=== PATIENT | male | born 1960 | race Caucasian/White ===

== ENCOUNTER 2019-01-09 09:14 | Day surgery (SDC) | payer OTHER ==
[~2019-01-09 09:14] MED LIST: CEFAZOLIN 2 GM/50 ML (PMX) 50 ML IVPB; SOD CHLORIDE 0.9% 1,000 ML IV
[2019-01-09 10:17] LABS: ADD MAN DIFF? NO
[2019-01-09 10:24] LABS: BASOPHILS % 0.6 % (0.0-2.0); EOSINOPHILS # 0.2 10^3/ul (0.0-0.5); EOSINOPHILS % 2.7 % (0.0-7.0); HEMATOCRIT 44.4 % (42.0-52.0); HEMOGLOBIN 15.4 g/dl (14.0-18.0); LYMPHOCYTES # 1.6 10^3/ul (0.8-2.9); LYMPHOCYTES % 25.3 % (15.0-51.0); MEAN CORPUSCULAR HEMOGLOBIN 29.1 pg (29.0-33.0); MEAN CORPUSCULAR HGB CONC 34.7 g/dl (32.0-37.0); MEAN CORPUSCULAR VOLUME 83.9 fl (82.0-101.0); MONOCYTE # 0.7 10^3/ul (0.3-0.9); MONOCYTES % 10.3 % (0.0-11.0); NEUTROPHIL # 3.8 10^3/ul (1.6-7.5); NEUTROPHILS % 60.3 % (39.0-77.0); PLATELET COUNT 274 10^3/UL (140-415); RED BLOOD COUNT 5.29 10^6/ul (4.70-6.10); RED CELL DISTRIBUTION WIDTH 12.1 % (11.5-14.5)
[2019-01-09 10:24] LABS: WHITE BLOOD COUNT 6.3 10^3/ul (4.8-10.8)
[2019-01-09 10:36] LABS: ALANINE AMINOTRANSFERASE 52 IU/L (13-69); ALBUMIN 4.7 g/dl (3.3-4.9); ALBUMIN/GLOBULIN RATIO 1.56; ALKALINE PHOSPHATASE 92 IU/L (42-121); ANION GAP 14 (5-13); ASPARTATE AMINO TRANSFERASE 33 IU/L (15-46); BILIRUBIN,INDIRECT 1.2 mg/dl (0-1.1); BILIRUBIN,TOTAL 1.2 mg/dl (0.2-1.3); BLOOD UREA NITROGEN 15 mg/dl (7-20); CALCIUM 9.8 mg/dl (8.4-10.2); CARBON DIOXIDE 24 mmol/L (21-31); CHLORIDE 104 mmol/L (97-110); CREATININE 0.76 mg/dl (0.61-1.24); Estimated GFR > 60 mL/min (>60); GLUCOSE 108 mg/dl (70-220); POTASSIUM 4.3 mmol/L (3.5-5.1); SODIUM 142 mmol/L (135-144); TOTAL PROTEIN 7.7 g/dl (6.1-8.1)
[2019-01-09 10:39] LABS: INR 0.95; PROTIME 12.8 Sec (11.9-14.9)
[2019-01-09 11:17] LABS: PARTIAL THROMBOPLASTIN TIME 37.7 Sec (23.0-35.0)
[2019-01-09] MEDS ORDERED: PROPOFOL 20 ML (12:54)
[2019-01-09] MEDS ORDERED: LIDOCAINE 2% (SDV) 5 ML INJ (12:55)
[2019-01-09] MEDS ORDERED: MIDAZOLAM 1 MG/ML 2 ML INJ (12:55)
[2019-01-09] MEDS ORDERED: FENTAnyl 50 MCG/ML VIAL (12:56)
[2019-01-09] MEDS ORDERED: DIPHENHYDRAMINE 50 MG INJ IV (13:00)
[2019-01-09] MEDS ORDERED: FENTAnyl 50 MCG/ML VIAL IV ×3 (13:00)
[2019-01-09] MEDS ORDERED: hydrALAzine 20 MG INJ IV (13:00)
[2019-01-09] MEDS ORDERED: MEPERIDINE 25 MG INJ IV (13:00)
[2019-01-09] MEDS ORDERED: PROCHLORPERAZINE 10 MG INJ IV (13:00)
[2019-01-09] MEDS ORDERED: HYDROmorphONE 1 MG/5 ML IV SYRINGE IV ×3 (13:00)
[2019-01-09] MEDS ORDERED: LABETALOL HCL 20MG INJ IV (13:00)
[2019-01-09] MEDS ORDERED: EPHEDrine SULFATE 50 MG/5 ML SYG IV (13:00)
[2019-01-09] MEDS ORDERED: ONDANSETRON 4 MG INJ IV (13:00)
[2019-01-09] MEDS ORDERED: CEFAZOLIN 1 GM INJ (13:07)
[2019-01-09] MEDS ORDERED: DEXAMETHASONE 4 MG/ML 5 ML INJ (13:07)
[2019-01-09] MEDS ORDERED: FAMOTIDINE 20 MG INJ (13:07)
[2019-01-09] MEDS ORDERED: ONDANSETRON 4 MG INJ (13:07)
[2019-01-09] MEDS: BUPIVACAINE 0.25% (MPF) 30 ML INJ (13:11)
[2019-01-09] MEDS ORDERED: HYDROCODONE/APAP (5/325) TAB PO (13:30)
[2019-01-09] MEDS: OXYCODONE/ACETAMINOPHEN (5/325) TAB PO (14:20)
== END 2019-01-09 15:34 | disposition home or self-care (01) ==
LOC: SDS 09:14
DX: D17.1 Benign lipomatous neoplasm of skin and subcutaneous tissue of trunk (principal); D17.22 Benign lipomatous neoplasm of skin and subcutaneous tissue of left arm; I10 Essential (primary) hypertension
CPT/HCPCS: 14000; 71045; 80053; 85025; 85610; 85730; 88307; 93005

== ENCOUNTER 2019-02-12 09:03 | Day surgery (SDC) | payer OTHER ==
[~2019-02-12 09:03] MED LIST changes: -SOD CHLORIDE 0.9% 1,000 ML IV
[2019-02-12] MEDS ORDERED: LACTATED RINGER'S 1,000 ML IV (10:30)
[2019-02-12] MEDS: SOD CHLORIDE 0.9% 1,000 ML IV (10:38)
[2019-02-12 10:39] LABS: ADD MAN DIFF? NO
[2019-02-12 10:43] LABS: BASOPHILS % 0.5 % (0.0-2.0); EOSINOPHILS # 0.2 10^3/ul (0.0-0.5); EOSINOPHILS % 2.6 % (0.0-7.0); HEMATOCRIT 41.4 % (42.0-52.0); HEMOGLOBIN 14.4 g/dl (14.0-18.0); LYMPHOCYTES # 1.4 10^3/ul (0.8-2.9); LYMPHOCYTES % 24.5 % (15.0-51.0); MEAN CORPUSCULAR HEMOGLOBIN 29.2 pg (29.0-33.0); MEAN CORPUSCULAR HGB CONC 34.8 g/dl (32.0-37.0); MEAN PLATELET VOLUME 8.8 fl (7.4-10.4); MONOCYTE # 0.6 10^3/ul (0.3-0.9); MONOCYTES % 9.6 % (0.0-11.0); NEUTROPHIL # 3.6 10^3/ul (1.6-7.5); NEUTROPHILS % 62.3 % (39.0-77.0); PLATELET COUNT 236 10^3/UL (140-415); RED BLOOD COUNT 4.93 10^6/ul (4.70-6.10); RED CELL DISTRIBUTION WIDTH 12.3 % (11.5-14.5)
[2019-02-12 10:43] LABS: WHITE BLOOD COUNT 5.8 10^3/ul (4.8-10.8)
[2019-02-12 11:02] LABS: ALANINE AMINOTRANSFERASE 32 IU/L (13-69); ALBUMIN/GLOBULIN RATIO 1.42; ALKALINE PHOSPHATASE 84 IU/L (42-121); ANION GAP 8 (5-13); ASPARTATE AMINO TRANSFERASE 23 IU/L (15-46); BILIRUBIN,INDIRECT 0.8 mg/dl (0-1.1); BILIRUBIN,TOTAL 0.8 mg/dl (0.2-1.3); BLOOD UREA NITROGEN 13 mg/dl (7-20); CALCIUM 9.6 mg/dl (8.4-10.2); CARBON DIOXIDE 23 mmol/L (21-31); CHLORIDE 111 mmol/L (97-110); CREATININE 0.66 mg/dl (0.61-1.24); Estimated GFR > 60 mL/min (>60); GLUCOSE 103 mg/dl (70-220); POTASSIUM 4.4 mmol/L (3.5-5.1); SODIUM 142 mmol/L (135-144); TOTAL PROTEIN 6.8 g/dl (6.1-8.1)
[2019-02-12 11:15] LABS: PROTIME 14.3 Sec (11.9-14.9); PT RATIO 1.1
[2019-02-12] MEDS ORDERED: PROCHLORPERAZINE 10 MG INJ IV (12:00)
[2019-02-12] MEDS ORDERED: ONDANSETRON 4 MG INJ IV (12:00)
[2019-02-12] MEDS ORDERED: FENTAnyl 50 MCG/ML VIAL IV ×3 (12:00)
[2019-02-12] MEDS ORDERED: OXYCODONE/ACETAMINOPHEN (5/325) TAB PO (12:00)
[2019-02-12] MEDS ORDERED: HYDROmorphONE 1 MG/5 ML IV SYRINGE IV ×3 (12:00)
[2019-02-12] MEDS ORDERED: MEPERIDINE 25 MG INJ IV (12:00)
[2019-02-12] MEDS ORDERED: DIPHENHYDRAMINE 50 MG INJ IV (12:00)
[2019-02-12] MEDS ORDERED: MIDAZOLAM 1 MG/ML 2 ML INJ (12:17)
[2019-02-12] MEDS ORDERED: FENTAnyl 50 MCG/ML VIAL (12:21)
[2019-02-12] MEDS ORDERED: LIDOCAINE 2% (SDV) 5 ML INJ (12:23)
[2019-02-12] MEDS ORDERED: CEFAZOLIN 1 GM INJ (12:23)
[2019-02-12 12:37] LABS: PARTIAL THROMBOPLASTIN TIME 39.1 Sec (23.0-35.0)
[2019-02-12] MEDS ORDERED: PROPOFOL 40 ML (12:42)
[2019-02-12] MEDS: BUPIVACAINE 0.5% (SDV) 30 ML INJ (12:44)
[2019-02-12] MEDS: LIDOCAINE 2% (MDV) 20 ML INJ (12:44)
[2019-02-12] MEDS ORDERED: HYDROCODONE/APAP (5/325) TAB PO (13:00)
== END 2019-02-12 14:50 | disposition home or self-care (01) ==
LOC: SDS 09:03
DX: D17.22 Benign lipomatous neoplasm of skin and subcutaneous tissue of left arm (principal); D17.1 Benign lipomatous neoplasm of skin and subcutaneous tissue of trunk; D17.23 Benign lipomatous neoplasm of skin and subcutaneous tissue of right leg; I10 Essential (primary) hypertension
CPT/HCPCS: 14000; 80053; 85025; 85610; 85730; 88307